=== PATIENT | male | born 1970 | race Two or more races ===

== ENCOUNTER 2016-06-06 10:29 | Emergency (ER) | payer BC ==
[~2016-06-06] VITALS: Ht 172.7 cm; Wt 81.0 kg
[2016-06-06 12:12] LABS: HEMATOCRIT 44.7 % (38.0-50.0); MCH 26.9 PG (29.0-34.0); MCHC 32.2 G/DL (30.0-36.0); MCV 83.4 FL (86-99); MEAN PLAT.VOLUME 9.9 uM^3 (9.0-12.4); PLATELET COUNT 264 K/uL (156-360); RBC DIS.WIDTH-CV 11.7 % (11.8-14.6); RBC DIS.WIDTH-SD 35.2 % (39-53); RED BLOOD COUNT 5.36 M/uL (4.00-5.50); WHITE BLOOD COUNT 5.7 K/uL (4.1-10.2)
[2016-06-06 12:21] LABS: CHLORIDE 103 mEq/L (99-109); SODIUM 140 mEq/L (136-147)
[2016-06-06 12:22] LABS: GLUCOSE 98 mg/dL (70-99)
[2016-06-06 12:24] LABS: ANION GAP 9 MEQ/L (2-14)
[2016-06-06 12:26] LABS: GFR ESTIMATE (CALCULATED) > 59 mL/min/
[2016-06-06 12:27] LABS: UREA NITROGEN (BUN) 15 mg/dL (9-23)
[2016-06-06 12:31] LABS: TROP-I INTERPRETATION NEGATIVE; TROPONIN-I < 0.01 ng/mL (0.0-0.30)
[2016-06-06] MEDS ORDERED: FLEXERIL10 MG PO (14:12)
[2016-06-06 14:14] LABS: TROP-I INTERPRETATION NEGATIVE; TROPONIN-I < 0.01 ng/mL (0.0-0.30)
[2016-06-06 15:12] VITALS: BP 112/81
== END 2016-06-06 15:13 | disposition home or self-care (01) ==
LOC: EME 10:29
PROVIDERS: Nurse Practitioner Family
DX: R07.9 Chest pain, unspecified (principal); S43.401A Unspecified sprain of right shoulder joint, initial encounter; X50.9XXA Other and unspecified overexertion or strenuous movements or postures, initial encounter; Z87.891 Personal history of nicotine dependence
CPT/HCPCS: 71020; 80048; 84484; 85027; 93005; 99281; 99284